=== PATIENT | female | born 1955 | race African-American/Black ===

== ENCOUNTER 2025-02-19 17:38 | Emergency (ER) | payer OTHER ==
[~2025-02-19] VITALS: Ht 167.6 cm; Wt 70.0 kg
[2025-02-19 17:40] VITALS: O2SAT 98
[2025-02-19 19:16] LABS: BASOPHILS % 0.6 % (0.0-2.0); EOSINOPHILS % 0.1 % (0.0-5.0); HEMATOCRIT. 39.1 % (36.0-48.0); HEMOGLOBIN. 12.7 g/dL (12.0-16.0); LYMPHOCYTES % 12.3 % (20.0-50.0); MEAN PLATELET VOLUME 8.3 fl (7.4-10.4); MONOCYTES % 7.8 % (2.0-8.0); NEUTROPHILS % 79.2 % (40.0-76.0); PLATELET 339 x1000/uL (130-400); RED BLOOD CELL COUNT 4.79 mill/uL (4.2-5.4); RED CELL DISTRIBUTION WIDTH 15.3 % (11.6-14.6)
[2025-02-19 19:29] LABS: TROPONIN I HIGH SENSITIVITY 16 ng/L (3.0-34)
[2025-02-19 19:30] LABS: CREATININE 2.1 mg/dL (0.6-1.0); UREA NITROGEN BLOOD 33 mg/dL (9-23)
[2025-02-19 19:32] LABS: ASPARTATE AMINOTRANSFERASE 14 IU/L (<34); BILIRUBIN TOTAL 1.2 mg/dL (0.1-1.0); PHOSPHORUS 3.4 mg/dL (2.5-4.9)
[2025-02-19 19:33] LABS: PROTEIN TOTAL 7.1 g/dL (6.0-8.3)
[2025-02-19] MEDS: SODIUM CHLORIDE 0.9% 1,000 ML IV ONE (20:25)
[2025-02-19] MEDS: POTASSIUM CHLORIDE 20MEQ TABLET SR PO ONE (20:25)
[2025-02-20 01:30] VITALS: BP 151/76; PULSE 91; RESP 18; TEMP 36.9; O2SAT 98
== END 2025-02-20 02:00 | disposition short-term general hospital (02) ==
LOC: ER 17:38 → CMPBEDREQ 02-20 08:55
DX: R53.1 Weakness (principal); E87.6 Hypokalemia; N17.9 Acute kidney failure, unspecified; I67.82 Cerebral ischemia; R06.02 Shortness of breath; Z79.899 Other long term (current) drug therapy; W18.39XA Other fall on same level, initial encounter; Y93.89 Activity, other specified; Y92.89 Other specified places as the place of occurrence of the external cause; Y99.8 Other external cause status
CPT/HCPCS: 99285; 70450; 71045; 80053; 83880; 83735; 84100; 85025; 84484; 36415; 72170; 93005; J7030